=== PATIENT | male | born 1990 | race Caucasian/White ===

== ENCOUNTER 2021-10-30 17:36 | Emergency (ER) | payer OTHER ==
[~2021-10-30] VITALS: Ht 185.4 cm; Wt 90.7 kg
== END 2021-10-30 18:45 | disposition home or self-care (01) ==
LOC: ER 17:36
DX: S63.502A Unspecified sprain of left wrist, initial encounter (principal); W06.XXXA Fall from bed, initial encounter; F17.200 Nicotine dependence, unspecified, uncomplicated
CPT/HCPCS: 73110; 99283-25